=== PATIENT | female | born 1945 | race Caucasian/White ===

== ENCOUNTER → 2017-09-10 | Outpatient (CLI) | payer OTHER ==
[~2017-09-10] VITALS: Ht 152.4 cm; Wt 795.1 kg
[~2017-09-10] MED LIST: ASPIRIN81 MG; CALAN 240 MG; DOXEPIN HCL10 MG; GABAPENTIN300 MG; HYDROCHLOROTH12.5 M1; METOPROLOL SUCC50 MG; PANTOPRAZOLE SO40 MG; TEMOVATE30 GM
== END | disposition home or self-care (01) ==
LOC: PPHC 12:11
DX: Z76.0 Encounter for issue of repeat prescription (principal)

== ENCOUNTER 2018-08-23 07:50 | Outpatient (CLI) | payer OTHER ==
[~2018-08-23 07:50] MED LIST changes: +DOXEPIN HCL10 MG PO; +NEURONTIN300 MG PO
== END 2018-08-23 07:55 | disposition home or self-care (01) ==
LOC: SONOGRAMA 07:50 → MAMO-SONO 08:15
DX: M25.561 Pain in right knee (principal)

== ENCOUNTER 2022-09-19 08:00 | Outpatient (CLI) | payer OTHER | END 2022-09-19 08:16 | disposition home or self-care (01) | LOC: RAD 08:00 | PROVIDERS: ATTEND Physical Medicine & Rehabilitation Pediatric Rehabilitation Medicine | DX: M15.0 Primary generalized (osteo)arthritis (principal); M75.112 Incomplete rotator cuff tear or rupture of left shoulder, not specified as traumatic; M54.12 Radiculopathy, cervical region ==